=== PATIENT | female | born 1970 | race Two or more races ===

== ENCOUNTER 2017-02-03 13:35 | Emergency (ER) | payer OTHER ==
[2017-02-03 13:39] VITALS: BP 106/64; PULSE 86; TEMP 98; BMI 30.2
--- NOTE | 2017-02-03 14:00 | PDOC ---
History of Present Illness - General Chief Complaint: Back Pain Stated Complaint: BACK PAIN Time Seen by Provider: 02/03/17 13:44 History Source: Patient Exam Limitations: No Limitations - History of Present Illness Initial Comments: 02/03/17 13:53 CHIEF COMPLAINT: Lower back pain HISTORY OF PRESENT ILLNESS:47-year-old female, history of herniated disc was attempting to fix a mattress and felt a pull to lower back, now with pain to generalized lower back. Nonradiating pain, no neurosensory deficits, no bowel or bladder difficulty incontinence or urinary retention, no saddle anesthesia, no footdrop. No history of IVDU or history of cancer. Ports the pain is the same as she had in the past REVIEW OF SYSTEMS: GENERAL: Afebrile, denies any weakness RESPIRATORY: No cough, wheezing, or hemoptysis. CARDIAC: No chest pain or shortness of breath MUSCULOSKELETAL: Pain to generalized lower back. No point tenderness. Pain worse on right than left. SKIN : No erythema, no bruising, no deformity. GI/: Denies any abdominal pain, no urinary difficulty, incontinence or urinary retention. RECTAL: Denies any difficulty this A.m. NEUROLOGICAL: Denies any numbness or tingling. No neurosensory deficits. PHYSICAL EXAM: GENERAL: The patient is awake, alert, and fully oriented, in no acute distress. RESPIRATORY: Lungs clear bilaterally, no rhonchi wheezes or crackles CARDIAC: S1-S2 audible, no murmur rub or gallop MUSCULOSKELETAL: Pain to generalized lower back, nonradiating, no tingling or sensory deficit. Less than 2 second cap refill, +4 popliteal and pedal pulses. GI/: Abdomen soft, nontender, nondistended. No rebound tenderness. No masses palpable. MUSCULOSKELETAL: No spinal point tenderness. Normal reflexive and no deficits to sensation or strength. RECTAL: Normal Rectal Tone. SKIN: Warm, Dry, normal turgor, no erythema, no edema no bruising. 02/03/17 16:00 Past History - Past Medical History Allergies/Adverse Reactions: Allergies Allergy/AdvReac Type Severity Reaction Status Date / Time aspirin Allergy Hives Verified 08/07/15 09:47 Home Medications: Ambulatory Orders Cyclobenzaprine HCl [Flexeril -] 10 mg PO TID 02/03/17 Methylprednisolone [Medrol Dose Kvng] 4 mg PO ASDIR #21 tablet 02/03/17 Pantoprazole Sodium [Protonix -] 40 mg PO DAILY 02/03/17 Paroxetine HCl [Paxil -] 10 mg PO DAILY 02/03/17 Pravastatin Sodium [Pravachol -] 20 mg PO HS 02/03/17 Asthma: Yes - Surgical History Abdominal Surgery: Yes (btl) - Psycho/Social/Smoking Cessation Hx Anxiety: No Suicidal Ideation: No Smoking Status: No Smoking History: Never smoked Number of Cigarettes Smoked Daily: 0 Information on smoking cessation initiated: No Hx Alcohol Use: No Drug/Substance Use Hx: No *Physical Exam - Vital Signs Last Vital Signs Temp Pulse Resp BP Pulse Ox 98 F 86 17 106/64 98 02/03/17 13:37 02/03/17 13:37 02/03/17 13:37 02/03/17 13:37 02/03/17 13:37 Medical Decision Making - Medical Decision Making 02/03/17 14:00 A/P: Patient evaluation of back pain. Has no point with Dr. Lewis tomorrow however here because pain is 10 out of 10. Patient is ambulatory to the ER. He has a spasm to lower back, there is no neurological deficits, no footdrop, no saddle anesthesia. Patient is allergic to aspirin unable to give Toradol will give 1 g of Tylenol and some Valium. Discharge on Medrol Dosepak to follow-up with pain management. 02/03/17 16:00 *DC/Admit/Observation/Transfer Diagnosis at time of Disposition: Back pain Qualifiers: Back pain location: low back pain Chronicity: chronic Back pain laterality: bilateral Sciatica presence: without sciatica Qualified Code(s): M54.5 - Low back pain - Discharge Dispostion Disposition: HOME Condition at time of disposition: Good Admit: No - Prescriptions Prescriptions: Methylprednisolone [Medrol Dose Kvng] 4 mg PO ASDIR #21 tablet - Referrals Referrals: Edmar Acosta MD [Staff Physician] - - Patient Instructions Printed Discharge Instructions: Low Back Pain Additional Instructions: 1. Please return to the emergency department with any numbness, tingling, weakness, numbness or tingling to groin or legs, or loss of bowel or bladder function. 2. Use pain medication as ordered. 3. Please is to followup in the office of Dr. Acosta tomorrow 4. Ice or heat 5. Refrain from lifting anything above 10 pounds, until pain resolved. - Post Discharge Activity Work/School Note: Back to Work
[2017-02-03] MEDS ORDERED: diazePAM 5 MG TABLET PO ONE (14:10)
[2017-02-03] MEDS ORDERED: ACETAMINOPHEN 500 MG TABLET (FP) PO ONE (14:10)
[2017-02-03] MEDS ORDERED: diazePAM 5 MG TABLET ONE (14:14)
[2017-02-03] MEDS ORDERED: ACETAMINOPHEN 500 MG TABLET (FP) ONE (14:14)
== END 2017-02-03 14:28 | disposition home or self-care (01) ==
LOC: JERFT 13:35
DX: M62.830 Muscle spasm of back (principal); X50.0XXA Overexertion from strenuous movement or load, initial encounter; X50.9XXA Other and unspecified overexertion or strenuous movements or postures, initial encounter; Y93.E9 Activity, other interior property and clothing maintenance; Y92.032 Bedroom in apartment as the place of occurrence of the external cause
CPT/HCPCS: 99281-25

== ENCOUNTER 2019-03-29 14:24 | Emergency (ER) | payer OTHER ==
--- NOTE | 2019-03-29 14:27 | PDOC ---
Rapid Medical Evaluation Time Seen by Provider: 03/29/19 14:26 Medical Evaluation: Allergies Allergy/AdvReac Type Severity Reaction Status Date / Time aspirin Allergy Hives Verified 08/07/15 09:47 03/29/19 14:26 CC: intermittent headache and dizziness x1 week PE: No focal findings. Gait steady. Orders: meclizine, labs, ekg The patient will proceed to the ER for continued Evaluation. Discharge Disposition - Diagnosis Dizziness - Referrals - Patient Instructions - Post Discharge Activity
[2019-03-29] MEDS ORDERED: SODIUM CHLORIDE 1,000 ML IV STA (14:28)
[2019-03-29 14:32] VITALS: BMI 25.6
[2019-03-29] MEDS ORDERED: MECLIZINE HCL 25 MG TABLET (FP) PO ONE (15:03)
[2019-03-29] MEDS ORDERED: ONDANSETRON *ODT* 4 MG TABLET SL ONE (15:03)
[2019-03-29] MEDS ORDERED: ONDANSETRON *ODT* 4 MG TABLET ONE (15:15)
[2019-03-29] MEDS ORDERED: METOCLOPRAMIDE HCL INJECTION 10 MG/2 ML VIAL IVPB ONE (15:15)
[2019-03-29] MEDS ORDERED: MECLIZINE HCL 25 MG TABLET (FP) ONE (15:15)
[2019-03-29 15:36] LABS: EOS % 4.2 % (0-4.5); HEMATOCRIT 36.3 % (32.4-45.2); HEMOGLOBIN 11.9 GM/dL (10.7-15.3); LYMPH % 42.9 % (8-40); MCH 26.9 pg (25.7-33.7); MCHC 32.8 g/dl (32.0-36.0); MEAN CELL VOLUME 82.2 fl (80-96); MEAN PLT VOLUME 9.9 fl (7.5-11.1); MONO % 7.8 % (3.8-10.2); NEUT % 44.1 % (42.8-82.8); PLATELET COUNT 155 K/MM3 (134-434); RBC 4.41 M/mm3 (3.60-5.2); RDW 16.5 % (11.6-15.6); WHITE BLOOD COUNT 5.6 K/mm3 (4.0-10.0)
[2019-03-29] MEDS ORDERED: METOCLOPRAMIDE HCL INJECTION 10 MG/2 ML VIAL ONE (15:46)
--- NOTE | 2019-03-29 15:49 | EKG ---
Test Reason : Blood Pressure : / mmHG Vent. Rate : 070 BPM Atrial Rate : 070 BPM P-R Int : 166 ms QRS Dur : 084 ms QT Int : 384 ms P-R-T Axes : 055 -01 061 degrees QTc Int : 414 ms SINUS RHYTHM WITH OCCASIONAL PREMATURE VENTRICULAR COMPLEXES OTHERWISE NORMAL ECG WHEN COMPARED WITH ECG OF 26-MAY-2008 10:46, PREMATURE VENTRICULAR COMPLEXES ARE NOW PRESENT NONSPECIFIC T WAVE ABNORMALITY NOW EVIDENT IN LATERAL LEADS Confirmed by MD Hayder, Darrion ([id number]) on 03/29/2019 3:49:17 PM Referred By: Confirmed By:Darrion Singletary MD
--- NOTE | 2019-03-29 16:08 | PDOC ---
Documentation entered by Alla Dial SCRIBE, acting as scribe for Tex Head MD. Tex Head MD: This documentation has been prepared by the Jay[employer] means Adrianna, SCRIBE, under my direction and personally reviewed by me in its entirety. I confirm that the documentation accurately reflects all work, treatment, procedures, and medical decision making performed by me. Attending Attestation - Resident Resident Name: GutierresTip - ED Attending Attestation I have performed the following: I have examined & evaluated the patient, The case was reviewed & discussed with the resident, I agree w/resident's findings & plan, Exceptions are as noted - HPI HPI: The patient is a 49 year old female, with a significant PMH of asthma and migraines, who presents to the ED for evaluation of dizziness and headache for one month, progressively worsening over the past week. Patient endorses an intermittent headache most prominent at the bilateral temporal region with associated room-spinning dizziness. She states the episodes last for about ten minutes before the self-resolve. Patient notes similar headaches in the past, but notes the development of vertigo is new prompting her visit to the ED. Denies any relief with Tylenol. Allergies: Aspirin Surgical History: BTL Social History: Denies EtOH, tobacco, or illicit drug use - Physicial Exam PE: 03/29/19 19:28 Vitals: Triage Vital signs reviewed General Appearance: No acute distress, well nourished well developed, Head: Atraumatic, Eyes: Pupils equal reactive round, extraocular movement intact Cardiac: Regular rate and rhythym, no murmurs, no rubs, no gallops, Lungs: Clear to auscultation bilateral, good air movement bilaterally, Abdomen: Soft, non distended, normal bowel sounds, non tender to palpation Extremities: Full range of motion to all extremities, no cyanosis, clubbing, or edema Skin: Warm and dry, no rashes or lesions, no rash, no petechiae Neuro: AOX3; cranial Nerves 2-12 grossly intact, strength intact to all extremities, sensation intact to all extremities, gait normal Psych: Normal mood, normal affect - Medical Decision Making 03/29/19 19:28 49 years old with history of migraines managed on outpatient basis with p.o. magnesium with persistent headache for the last 10 days Here in the emergency department a CAT scan was performed which demonstrated no acute pathology Status post IV fluids Benadryl and Reglan patient feels much better she will follow-up with neurology within 1 week Findings, the need for follow-up and strict return instructions discussed with patient. Heart Score/ECG Review - ECG Impressions Comment:: 03/29/19 19:[address] elevations or T wave inversions
--- NOTE | 2019-03-29 16:09 | PDOC ---
History of Present Illness - General Chief Complaint: Lightheaded Stated Complaint: HEADACHE Time Seen by Provider: 03/29/19 14:26 - History of Present Illness Initial Comments: 03/29/19 15:26 49f with pmh of migraines presents to the ed with Ed with b/l temporal headache for 1 month exacerbated over the past 4 days and associated with vertigo. She states that the episodes have a paroxysm of about 10min. Had similar type of headaches in the past that she unsuccessfully attempted to treat with Tylenol but the vertiginous symptoms are new. Vertigo is worse with movement. Past History - Past Medical History Allergies/Adverse Reactions: Allergies Allergy/AdvReac Type Severity Reaction Status Date / Time aspirin Allergy Hives Verified 03/29/19 15:44 Home Medications: Ambulatory Orders Cyclobenzaprine HCl [Flexeril -] 10 mg PO TID 02/03/17 Methylprednisolone [Medrol Dose Kvng] 4 mg PO ASDIR #21 tablet 02/03/17 Pantoprazole Sodium [Protonix -] 40 mg PO DAILY 02/03/17 Paroxetine HCl [Paxil -] 10 mg PO DAILY 02/03/17 Pravastatin Sodium [Pravachol -] 20 mg PO HS 02/03/17 Meclizine HCl [Antivert -] 25 mg PO TID #21 tablet 03/29/19 Asthma: Yes - Surgical History Abdominal Surgery: Yes (btl) - Psycho Social/Smoking Cessation Hx Smoking Status: No Smoking History: Never smoked Number of Cigarettes Smoked Daily: 0 Hx Alcohol Use: No Drug/Substance Use Hx: No Review of Systems - Review of Systems Able to Perform ROS?: Yes Is the patient limited Fijian proficient: No Constitutional: No: Symptoms Reported HEENTM: No: Symptoms Reported Respiratory: No: Symptoms reported Cardiac (ROS): No: Symptoms Reported ABD/GI: No: Symptoms Reported : No: Symptoms Reported Musculoskeletal: No: Symptoms Reported Integumentary: No: Symptoms Reported Neurological: Yes: See HPI All Other Systems: Reviewed and Negative *Physical Exam - Vital Signs Last Vital Signs Temp Pulse Resp BP Pulse Ox 98.2 F 20 L 20 124/70 100 03/29/19 14:29 03/29/19 14:29 03/29/19 14:29 03/29/19 14:29 03/29/19 14:29 - Physical Exam General Appearance: Yes: Nourished, Appropriately Dressed. No: Apparent Distress HEENT: positive: EOMI, SALEEM, Normal ENT Inspection Respiratory/Chest: positive: Lungs Clear, Normal Breath Sounds. negative: Chest Tender, Respiratory Distress Cardiovascular: positive: Regular Rhythm, Regular Rate, S1, S2 Gastrointestinal/Abdominal: positive: Normal Bowel Sounds, Flat, Soft. negative : Tender Neurologic: positive: Fully Oriented, Alert, Normal Mood/Affect, Other (No nystagmus upon head impulse test) ED Treatment Course - LABORATORY CBC & Chemistry Diagram: 03/29/19 15:20 03/29/19 15:20 - RADIOLOGY Radiology Studies Ordered: Category Date Time Status HEAD CT WITHOUT CONTRAST [CT] Stat CT Scan 03/29/19 15:25 Ordered Medical Decision Making - Medical Decision Making 03/29/19 16:12 49f with pmh of migraines presents to the ed with Ed with b/l temporal headache for 1 month exacerbated over the past 4 days and associated with vertigo. She states that the episodes have a paroxysm of about 10min. Will treat with meclizine and zofran however due to the patient's worsening symptoms and long duration we will obtain a non-contrast head ct to r/o any mass. 03/29/19 16:26 EKG: Sinus rhythm with occasional PVC's, rate: 70 03/29/19 17:34 CT head within normal limits ok to dc Discharge - Discharge Information Problems reviewed: Yes Clinical Impression/Diagnosis: Dizziness, Migraine Condition: Improved Disposition: HOME - Admission No - Follow up/Referral - Patient Discharge Instructions Patient Printed Discharge Instructions: Vertigo Additional Instructions: Follow up with you primary physician within the next 4 days. Come back to the emergency department for any new, worsening or concerning symptom. 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 - Post Discharge Activity
[2019-03-29 16:11] LABS: ALBUMIN 3.8 g/dl (3.4-5.0); ALK PHOS 85 U/L (45-117); ANION GAP 4 MMOL/L (8-16); BILIRUBIN,TOTAL 0.4 mg/dL (0.2-1); BLOOD UREA NITROGEN 11.5 mg/dL (7-18); CALCIUM 9.2 mg/dL (8.5-10.1); CHLORIDE 105 mmol/L (98-107); CO2 31 mmol/L (21-32); CREATININE 0.8 mg/dL (0.55-1.3); GLUCOSE,RANDOM 101 mg/dL (74-106); POTASSIUM 4.1 mmol/L (3.5-5.1); SGOT/AST 15 U/L (15-37); SGPT/ALT 19 U/L (13-61); SODIUM 140 mmol/L (136-145); TOT PROT 7.3 g/dl (6.4-8.2)
[2019-03-29 17:57] VITALS: BP 118/74; PULSE 78; TEMP 98.5
== END 2019-03-29 17:54 | disposition home or self-care (01) ==
LOC: JER 14:24
PROC: 3E0337Z Introduction of Electrolytic and Water Balance Substance into Peripheral Vein, Percutaneous Approach (ICD-10-PCS; principal; 2019-03-29)
PROC: 3E033GC Introduction of Other Therapeutic Substance into Peripheral Vein, Percutaneous Approach (ICD-10-PCS; 2019-03-29)
DX: G43.909 Migraine, unspecified, not intractable, without status migrainosus (principal); J45.909 Unspecified asthma, uncomplicated; Z98.51 Tubal ligation status; Z88.6 Allergy status to analgesic agent
CPT/HCPCS: 36415; 70450-TC; 80053; 82550; 83735; 84484; 85025; 93005; 93010; 96361; 96374; 99284-25; J7030; Q0162